=== PATIENT | male | born 1995 | race Caucasian/White ===

== ENCOUNTER → 2017-06-07 | Outpatient (CLI) | payer OTHER ==
--- NOTE | 2017-06-07 13:53 | REP ---
MRI BRAIN WITHOUT AND WITH CONTRAST: HISTORY: Sensory neural hearing loss. CONTRAST: ProHance 15 mL. Small nodular lesions are present in the periventricular white matter of the frontal , temporal and parietal lobes. The nodular lesions are isointense in signal intensity with jimenez matter on all pulse sequences. This is consistent with heterotopic jimenez matter. There is no intraparenchymal hemorrhage, infarct, mass or midline shift. There is no abnormal enhancement. An arachnoid cyst is present in the superior cerebellar cistern. The cyst measures 2.3 cm in transverse by 4.9 cm in AP by 3.8 cm in cephalocaudal dimensions. There is mild mass effect on the superior cerebellum and medial aspects of the occipital lobe. There is minimal mass effect on the quadrigeminal plate and posterior parietal lobes. There is no hydrocephalus or extracerebral collection. There is no cerebellopontine angle mass. The inner ear structures are normal in appearance. The mastoid air cells and sinuses are clear. IMPRESSION: 1. 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 2. Superior cerebellar cistern arachnoid cyst. Signed by Gómez Santiago MD 06/07/2017 02:00 P
== END ==
LOC: M RAD 11:56
PROVIDERS: ATTEND Otolaryngology
DX: H90.3 Sensorineural hearing loss, bilateral (principal); G93.0 Cerebral cysts
CPT/HCPCS: 70553; A9576

== ENCOUNTER 2018-12-22 22:02 | Emergency (ER) | payer OTHER ==
[~2018-12-22] VITALS: Ht 170.2 cm; Wt 84.1 kg
[2018-12-22] MEDS ORDERED: BENA25CA4 PO (22:05)
[2018-12-22] MEDS ORDERED: FAMOTIDINE INJ 20MG/2ML VIAL (S0028) IV ONE (22:15)
[2018-12-22] MEDS ORDERED: methylPREDNISolone INJ 125 MG/2 ML VIAL (J2930) IV ONE (22:15)
[2018-12-22] MEDS ORDERED: NS 1,000 ML IV ONE (22:15)
[2018-12-22] MEDS ORDERED: FAMOTIDINE/NS 20 MG/50 ML BAG (S0028) IV ONE (22:30)
[2018-12-22] MEDS ORDERED: PRED10TA2 PO (23:05)
[2018-12-22] MEDS ORDERED: PEPC1TAB5 PO (23:05)
[2018-12-22 23:10] VITALS: BP 128/65
== END 2018-12-22 23:11 | disposition home or self-care (01) ==
LOC: M ED 22:02
DX: R21 Rash and other nonspecific skin eruption (principal); T78.40XA Allergy, unspecified, initial encounter
CPT/HCPCS: 96374; 96375; 99284; J2930